=== PATIENT | female | born 1965 | race Caucasian/White ===

== ENCOUNTER 2024-03-20 04:12 | Emergency (ER) | payer BC ==
[~2024-03-20] VITALS: Ht 167.6 cm; Wt 124.7 kg
[2024-03-20] MEDS ORDERED: METO50TA7 PO (04:27)
[2024-03-20] MEDS ORDERED: methylPREDNISolone SOD SUCC 125 MG/2 ML VIAL ONE (04:47)
[2024-03-20] MEDS: diphenhydrAMINE 50 MG/1 ML VIAL IV ONE (04:53)
[2024-03-20] MEDS: methylPREDNISolone SOD SUCC 125 MG/2 ML VIAL IV ONE (04:54)
[2024-03-20] MEDS ORDERED: PRED50TA PO (05:38)
[2024-03-20] MEDS ORDERED: EPIN0.3P3 IM (05:38)
[2024-03-20 05:44] VITALS: BP 133/99; TEMP 98; O2SAT 96
== END 2024-03-20 05:45 | disposition left against medical advice (07) ==
LOC: ER 04:21
DX: R22.9 Localized swelling, mass and lump, unspecified (principal); T78.40XA Allergy, unspecified, initial encounter; F17.200 Nicotine dependence, unspecified, uncomplicated; Z79.899 Other long term (current) drug therapy; Z79.52 Long term (current) use of systemic steroids; Y92.89 Other specified places as the place of occurrence of the external cause
CPT/HCPCS: 99283; 96372; J2919; A4606; A4663